=== PATIENT | male | born 1950 | race Caucasian/White ===

== ENCOUNTER → 2016-09-24 | Outpatient (CLI) | payer OTHER | LOC: BHFA 14:45 | PROVIDERS: ATTEND Internal Medicine Cardiovascular Disease | DX: I36.8 Other nonrheumatic tricuspid valve disorders (principal); I10 Essential (primary) hypertension; I27.2 Other secondary pulmonary hypertension ==

== ENCOUNTER 2016-09-28 06:48 | Day surgery (SDC) | payer OTHER ==
[2016-09-28] MEDS ORDERED: DIAZEPAM 5 MG TAB PO ONE (06:53)
[2016-09-28] MEDS ORDERED: ASPIRIN EC 325 MG TAB PO ONE (06:53)
[2016-09-28] MEDS ORDERED: NS 1,000 ML IV ONE (06:53)
[2016-09-28] MEDS ORDERED: FAMOTIDINE 20 MG TAB PO ONE (06:53)
[2016-09-28] MEDS ORDERED: diphenhydrAMINE 25 MG CAP PO ONE (06:53)
--- NOTE | 2016-09-28 07:15 | CPEKG ---
Heart Rate: 63 RR Interval: 952 P-R Interval: 192 QRSD Interval: 94 QT Interval: 412 QTC Interval: 422 P [place]: 75 QRS [place]: 121 T Wave [place]: 11 EKG Severity - OTHERWISE NORMAL ECG - EKG Impression: SINUS RHYTHM EKG Impression: RIGHT AXIS DEVIATION EKG Impression: right atrial enlargement Electronically Signed By: Mario Starr 28-Sep-2016 17:40:54
[2016-09-28 07:45] LABS: % IMMATURE GRANULYOCYTES 0.3 % (0.0-1.1); ABSOLUTE IMMATURE GRANULOCYTES 0.02 10^3/uL (0.00-0.10); ADD DIFF? NO; ADD MORPH? NO; ADD SCAN? NO; ATYPICAL LYMPHOCYTE FLAG 0 (0-99); FRAGMENT RBC FLAG 0 (0-99); HEMATOCRIT 53.6 % (40.0-51.0); HEMOGLOBIN 18.5 g/dL (13.7-17.5); LEFT SHIFT FLG 0 (0-99); LIPEMIA HEMOLYSIS FLAG 90 (0-99); MEAN CELL HEMOGLOBIN 30.8 pg (27.9-34.1); MEAN CELL HEMOGLOBIN CONCENTR. 34.5 g/dL (32.4-36.7); MEAN CELL VOLUME 89.2 fL (81.5-99.8); MEAN PLATELET VOLUME 10.1 fL (8.7-11.7); PLATELET CLUMPS FLAG 0 (0-99); PLATELET COUNT 194 10^3/uL (150-400); RED BLOOD CELL COUNT 6.01 10^6/uL (4.40-6.38); RED CELL DISTRIBUTION WIDTH 13.9 % (11.5-15.2)
[2016-09-28 07:53] LABS: INR 1.04 (0.83-1.16); PROTIME(PATIENT) 13.5 SEC (12.0-15.0)
[2016-09-28 08:07] LABS: ANION GAP 10 mEq/L (8-16); CALCIUM 8.9 mg/dL (8.5-10.4); CARBON DIOXIDE 24 mEq/l (22-31); CHLORIDE 110 mEq/L (97-110); CHOLESTEROL 182 mg/dL (140-220); CHOLESTEROL/HDL RATIO 3.31 RATIO (1.00-4.97); CREATININE 0.8 mg/dL (0.7-1.3); GLOMERULAR FILTRATION RATE > 60; GLUCOSE 90 mg/dL (70-100); HIGH DENSITY LIPOPROTEIN 55 mg/dL (40-65); LDL/HDL RATIO 2.04 RATIO (1.00-3.64); LOW DENSITY LIPOPROTEIN 112 mg/dL (80-100); NON-HIGH DENSITY LIPOPROTEIN 127 mg/dL (90-129); POTASSIUM 4.3 mEq/L (3.5-5.2); SODIUM 144 mEq/L (134-144); TRIGLYCERIDE 78 mg/dL (40-150); VERY LOW DENSITY LIPOPROTEINS 15 mg/dL (8-25)
[2016-09-28] MEDS ORDERED: IOPAMIDOL (ISOVUE-370) 150 ML BTL IV ONE (09:03)
[2016-09-28] MEDS ORDERED: NITROGLYCERIN 0.4 MG BTL SL PRN (09:17)
[2016-09-28] MEDS ORDERED: ATROPINE SULFATE 1 MG/10 ML SYR IVP PRN (09:17)
[2016-09-28] MEDS ORDERED: ONDANSETRON 4 MG/2 ML VIAL IVP PRN (09:17)
[2016-09-28] MEDS ORDERED: OXYCODONE/APAP 5/325 TAB PO PRN (09:17)
[2016-09-28] MEDS ORDERED: HYDROCODONE/APAP 5/325 TAB PO PRN (09:17)
--- NOTE | 2016-09-28 09:21 | PDDXCAT ---
Diagnostic Cath Note - . Date: 09/28/16 [employer] Attendant: Donte Indication: other (Pulmonary Hypertension) - Procedure Procedure: right heart catheterization - Materials Right Heart Cath size: 5F Right Heart Cath materials: PWP catheter - Findings-Right Heart Catheterization RA: 13 mmHg RV: 83/12 mmHg PA: 90/35 mmHg mean 57 mmHg PAOP: 18 mmHg AO: 144/75 mmHg Complications: none Estimated blood loss: <50ml Closure method: manual pressure Assessment: Severe pulmonary hypertension associated with COPD and hypoxia Plan: Offer O2 chronically. Aggressive systemic blood pressure control Await recommendations from [facility] Patient Problems: Problems Problem Status Diagnosed COPD (chronic obstructive pulmonary disease) Acute COPD with hypoxia Acute Pulmonary hypertension Acute
== END 2016-09-28 09:54 | disposition home or self-care (01) ==
LOC: FCATH 06:48
PROVIDERS: ATTEND Internal Medicine Interventional Cardiology
PROC: 4A023N6 Measurement of Cardiac Sampling and Pressure, Right Heart, Percutaneous Approach (ICD-10-PCS; principal; 2016-09-28)
DX: I27.2 Other secondary pulmonary hypertension (principal); I49.3 Ventricular premature depolarization; Z87.891 Personal history of nicotine dependence; J44.9 Chronic obstructive pulmonary disease, unspecified; R09.02 Hypoxemia
CPT/HCPCS: J1644; Q9967

== ENCOUNTER → 2016-10-20 | Outpatient (CLI) | payer OTHER ==
--- NOTE | 2016-10-20 16:38 | CT ---
CT of the Chest (Without Contrast) Clinical Indications: Long-term smoker, quit 18 years ago. COPD. Pulmonary hypertension. Comparison: CT chest September 12, 2012. Technique: Multidetector helical CT imaging was performed from the superior thoracic inlet to the di aphragm. The radiologist manipulated images at the computer workstation. Dose reduction techniques w ere utilized. Findings: There is extensive emphysema as previously seen. Nodular lesion that is pericardial, or a t least abutting the right heart border, in the right middle lobe, currently measures 17 x 20 mm. It previously measured 20 x 11 mm. It is now more protuberant and less elongated, where as before it was more elongated and less protuberant. Given the change in the shape of this, I think this is most lik norma an inflammatory plaque or scar and not a neoplastic process. It does not include any calcificatio ns or any spiculated borders. There is a moderate amount of scar surrounding this lesion in the lung parenchyma. Otherwise, there is no developing mass. No consolidation or effusion. A small amount of coronary calcification is present. There is no pericardial effusion. Heart size is normal. Noncontrasted evaluation of the upper abdomen is normal. Impression: 1. Plaque-like lesion in the right middle lobe, changed in shape, currently measuring 17 x 20 mm comp ared to the previous 20 x 11 mm, that probably represents inflammatory lesion rather than neoplastic process. 2. Significant emphysema as known before. 3. No convincing new mass or nodule. No consolidation. I called to Dr. Emiliano Lambert at the office today. Unfortunately, Dr. Lambert had already left the offic e today.
== END ==
LOC: FIMAGING 14:50
PROVIDERS: ATTEND Family Medicine Sports Medicine
DX: J43.9 Emphysema, unspecified (principal); R91.1 Solitary pulmonary nodule; I27.2 Other secondary pulmonary hypertension; Z87.891 Personal history of nicotine dependence

== ENCOUNTER → 2016-12-27 | Outpatient (CLI) | payer OTHER | LOC: BHFA 14:00 | PROVIDERS: ATTEND Internal Medicine Cardiovascular Disease | DX: I27.2 Other secondary pulmonary hypertension (principal) ==

== ENCOUNTER → 2017-06-07 | Outpatient (CLI) | payer OTHER | LOC: CIMAGING 09:53 | PROVIDERS: ATTEND Family Medicine Sports Medicine | DX: R91.1 Solitary pulmonary nodule (principal); J43.2 Centrilobular emphysema; J42 Unspecified chronic bronchitis; I25.10 Atherosclerotic heart disease of native coronary artery without angina pectoris | CPT/HCPCS: 71250-PO ==

== ENCOUNTER → 2017-08-04 | Outpatient (CLI) | payer OTHER | LOC: CIMAGING 10:37 | PROVIDERS: ATTEND Family Medicine Sports Medicine | DX: R91.1 Solitary pulmonary nodule (principal); J43.2 Centrilobular emphysema; I25.10 Atherosclerotic heart disease of native coronary artery without angina pectoris | CPT/HCPCS: 71250-PO ==

== ENCOUNTER → 2018-01-24 | Outpatient (CLI) | payer OTHER | LOC: FIMAGING 15:01 | PROVIDERS: ATTEND Family Medicine Sports Medicine | DX: R91.1 Solitary pulmonary nodule (principal) ==

== ENCOUNTER → 2018-02-23 | Outpatient (CLI) | payer OTHER | LOC: BHFA 09:00 | PROVIDERS: ATTEND Internal Medicine Interventional Cardiology | DX: I49.3 Ventricular premature depolarization (principal); I27.20 Pulmonary hypertension, unspecified ==